=== PATIENT | female | born 1960 | race Caucasian/White ===

== ENCOUNTER 2017-01-27 13:30 | Inpatient (IN) | payer OTHER ==
[2017-01-28] VITALS (7 sets, daily range): BP systolic 137–155; BP diastolic 66–77; PULSE 70–86; RESP 14; TEMP 96.8–99; O2SAT 100
[2017-01-28] MEDS ORDERED: VASOPRESSIN 80 U/NS 100 ML Titrate per Translife Protocol IV SCH ×2 (06:00)
[2017-01-28] MEDS ORDERED: DOPamine INJ PREMIX 500 ML IV SCH (06:00)
[2017-01-28] MEDS ORDERED: 0.0225% SODIUM CHLORIDE, POTASSIUM CHLORIDE 20 MEQ IV SCH ×3 (06:00)
[2017-01-28] MEDS ORDERED: DEXTROSE 50% IN WATER 50 ML VIAL(D50) IV SCH (06:00)
[2017-01-28] MEDS ORDERED: INSULIN HUMAN REGULAR 1,000 UNITS/10 ML VIAL IV PUSH SCH (06:00)
[2017-01-28] MEDS ORDERED: LEVOTHYROXINE 400 MCG/NS 500 ML IV SCH ×2 (06:00)
[2017-01-28] MEDS ORDERED: methylPREDNISolone SOD SUCC 1000 MG/16 ML VIAL IV SCH (06:00)
[2017-01-28] MEDS ORDERED: ceFAZolin 1,000 MG/NS 100 ML IV SCH ×2 (06:15)
[2017-01-28] MEDS ORDERED: ICU - MAGNESIUM SULFATE 4 GM/NS 100 ML IV PRN ×2 (09:30)
[2017-01-28] MEDS ORDERED: ICU - MAGNESIUM OXIDE 400 MG TAB PO PRN (09:30)
[2017-01-28] MEDS ORDERED: ICU - MAGNESIUM SULFATE 2 GM/NS 100 ML IV PRN ×2 (09:30)
[2017-01-28] MEDS ORDERED: ICU - POTASSIUM PHOSPHATE MONOBASIC 500 MG TAB PO PRN (09:30)
[2017-01-28] MEDS ORDERED: POTASSIUM CHLORIDE 25 MEQ EFFERVESCENT TAB PO PRN (09:30)
[2017-01-28] MEDS ORDERED: ICU - SODIUM PHOSPHATE 30 MMOL/NS 250 ML IV PRN ×2 (09:30)
[2017-01-28] MEDS ORDERED: ICU - D/C ICU ELECTROLYTE ORDERS PRN (09:30)
[2017-01-28] MEDS ORDERED: ICU - POTASSIUM CHLORIDE/AQUEOUS SOLN 20 MEQ/100 ML IVPB IV PRN (09:30)
[2017-01-28] MEDS ORDERED: ICU - CALL ORDERING PHYSICIAN PRN (09:30)
[2017-01-28] MEDS: ceFAZolin 1,000 MG/NS 100 ML IV SCH ×4 (10:59→18:37)
[2017-01-28 11:08] LABS: BLOOD, URINE NEG (NEG); COMMENT (UR) CATH-CULTURE IND; CULTURE IF INDICATED CATH CULTURE IND; GLUCOSE,URINE 1000 mg/dL (NEG); KETONE, URINE 40 mg/dL (NEG); MUCUS URINE FEW /lpf (OCC); NITRITE,URINE NEG (NEG); TRANSITIONAL EPI CELLS, URINE <1 /hpf; URINE COLOR YELLOW (YELLW/STRAW)
[2017-01-28 11:09] LABS: BACTERIA, URINE RARE /hpf
[2017-01-28 12:13] LABS: TOTAL BILIRUBIN ADULT 1.1 MG/DL (0.2-1.0)
[2017-01-28 13:20] LABS: BLOOD GAS BASE EXCESS -3.6 mmol/L (-2-2); BLOOD GAS CARBOXYHEMOGLOBIN 0.8 % (0-4); BLOOD GAS HCO3 21 mmol/L (22-26); BLOOD GAS METHEMOGLOBIN 0.9 % (0-2); BLOOD GAS O2 HGB SATURATION 98 % (90-100); BLOOD GAS OXYGEN CONTENT 14.5 Vol % (12.0-20.0); BLOOD GAS PCO2 39 mmHg (38-42); BLOOD GAS PO2 433 mmHg (61-120); BLOOD GAS TOTAL HGB 9.7 G/DL (12.0-16.0); CRITICAL VALUE NO; FIO2 100 %; OXYGEN DEVICE VENT; TEMP CORR TO 98.6
[2017-01-28 13:21] LABS: DRAW SITE ALINE
[2017-01-28 13:22] LABS: STAT NO
[2017-01-28] MEDS ORDERED: FUROSEMIDE 20 MG/2 ML VIAL IV PUSH ONE (14:00)
[2017-01-28] MEDS: methylPREDNISolone SOD SUCC 1000 MG/16 ML VIAL IV SCH ×2 (14:28→22:11)
[2017-01-28] MEDS ORDERED: INSULIN HUMAN REGULAR 1,000 UNITS/10 ML VIAL IV PUSH ONE ×2 (16:45→19:00)
[2017-01-28 18:00] LABS: AUTOMATED NEUTROPHIL # 12.1 TH/MM3 (1.8-7.7); BASOPHIL % 0.1 % (0.0-2.0); HEMATOCRIT 23.1 % (35.0-46.0); LYMPH % 4.3 % (9.0-44.0); LYMPHOCYTE # 0.6 TH/MM3 (1.0-4.8); MEAN CORPUSCULAR HEMOGLOBIN 27.6 PG (27.0-34.0); MEAN CORPUSCULAR HGB CONC 32.1 % (32.0-36.0); NEUT % 92.6 % (16.0-70.0); PLATELET COUNT 63 TH/MM3 (150-450); RED BLOOD COUNT 2.68 MIL/MM3 (4.00-5.30); RED CELL DISTRIBUTION WIDTH 15.1 % (11.6-17.2)
[2017-01-28 18:01] LABS: BACTERIA, URINE RARE /hpf; BLOOD, URINE NEG (NEG); GLUCOSE,URINE 300 mg/dL (NEG); KETONE, URINE NEG (NEG); MUCUS URINE FEW /lpf (OCC); NITRITE,URINE NEG (NEG); URINE COLOR LIGHT-YELLOW (YELLW/STRAW)
[2017-01-28 18:02] LABS: COMMENT (UR) CATH-CULTURE IND; CULTURE IF INDICATED CATH CULTURE IND
[2017-01-28 18:10] LABS: HEMO FLAGS AUTO DIFF
[2017-01-28 18:15] LABS: ALT (GPT) 78 U/L (10-53); ANION GAP 7 MEQ/L (5-15); AST (GOT) 75 U/L (15-37); BICARBONATE 25.9 MEQ/L (21.0-32.0); BLOOD UREA NITROGEN 13 MG/DL (7-18); CHLORIDE 116 MEQ/L (98-107); GLOMERULAR FILTRATION RATE 63 ML/MIN (>89); POTASSIUM 3.1 MEQ/L (3.5-5.1); SODIUM (NA) 149 MEQ/L (136-145)
[2017-01-28 18:17] LABS: ALKALINE PHOSPHATASE 58 U/L (45-117)
[2017-01-28] MEDS: ICU - POTASSIUM CHLORIDE/AQUEOUS SOLN 40 MEQ/100 ML IVPB IV PRN ×2 (18:37→22:07)
[2017-01-28 18:44] LABS: BANDS 28 % (0-6); NEUTROPHIL # MANUAL DIFF 12.2 TH/MM3 (1.8-7.7); POLYS (SEG NEUTROPHILS) 66 % (16-70); WBC DIFF SAMPLE 100
[2017-01-28 18:45] LABS: KERATOCYTES OCC (NORMAL)
[2017-01-28 18:47] LABS: PLATELET ESTIMATE SMEAR LOW (NORMAL); PLATELET MORPHOLOGY NORMAL (NORMAL); SCAN/DIFF FINAL DIFF MANUAL
[2017-01-28] MEDS ORDERED: MANNITOL INJ 50 ML ONE (22:53)
== END 2017-01-29 02:58 | disposition expired | DRG 951 ==
LOC: N03B 13:30
DX: Z52.89 Donor of other specified organs or tissues (principal)
CPT/HCPCS: 36430; 71010; 80048; 80053; 80076; 81001; 82150; 82247; 82248; 82330; 82550; 82552; 82805; 82948; 82977; 83036; 83690; 83735; 84100; 84155; 84450; 84460; 84484; 84702; 85007; 85025; 85027; 85610; 85730; 86900; 86901; 86920; 87040; 87070; 87086; 87205; 88307; 88331; 93005; 93306; 94640; J0171; J0690; J0692; J1265; J1815; J1940; J2150; J2543; J2930; J3475; J3480; J7040; J7050; P9016; P9045; P9047